=== PATIENT | male | born 1960 | race African-American/Black ===

== ENCOUNTER 2017-11-16 15:59 | Observation (INO) | payer OTHER ==
[2017-11-16] MEDS: HYDROcodone/APAP 10/325 1 TAB TABLET PO ×2 (17:54→23:53)
[2017-11-16] MEDS: cefTRIAXone IV Push 1 GM VIAL. IVP (18:21)
[2017-11-16] MEDS: IV DEXTROSE 5 %-0.45 % NACL 1,000 ML IV (18:25)
[2017-11-16 18:52] LABS: BASO % 1 % (0-3); EOS # 0.2 x10^3/uL (0.0-0.7); EOS % 2 % (0-3); HEMATOCRIT 46.4 % (39.0-53.0); HEMOGLOBIN 15.9 g/dL (13.0-17.5); LYMPH # 1.6 x10^3/uL (1.0-4.8); LYMPH % 21 % (24-48); MEAN CORPUSCULAR HEMOGLOBIN 29 pg (25-35); MEAN CORPUSCULAR HGB CONC 34 g/dL (31-37); MEAN CORPUSCULAR VOLUME 84 fL (79-100); MONO # 1.4 x10^3/uL (0.0-1.1); MONO % 20 % (0-9); NEUT # 4.2 x10^3uL (1.8-7.7); NEUT % 57 % (31-73); PLATELET COUNT 194 x10^3/uL (140-400); RED BLOOD COUNT 5.55 x10^6/uL (4.30-5.70); RED CELL DISTRIBUTION WIDTH 13.1 % (11.5-14.5); WHITE BLOOD COUNT 7.4 x10^3/uL (4.0-11.0)
[2017-11-16 18:54] LABS: ADD MAN DIFF? YES
[2017-11-16 19:11] LABS: ANION GAP 5 (6-14); BLOOD UREA NITROGEN 32 mg/dL (8-26); CALCIUM 9.2 mg/dL (8.5-10.1); CARBON DIOXIDE 31 mmol/L (21-32); CHLORIDE 102 mmol/L (98-107); CREATININE 1.8 mg/dL (0.7-1.3); GFR 47.6; GLUCOSE 128 mg/dL (70-99); POTASSIUM 3.4 mmol/L (3.5-5.1); SODIUM 138 mmol/L (136-145)
[2017-11-16 19:43] LABS: % ATYL 1 % (0-0); % BASOS 1 % (0-3); % EOS 1 % (0-5); % LYMPHS 27 % (24-48); % MONOS 15 % (0-10); % SEGS 55 % (35-66); PLT ESTIMATE ADEQUATE (ADEQUATE)
[2017-11-16] MEDS: MORPHINE SULFATE 4 MG/ML DISP.SYRIN. IV ×2 (19:59→22:05)
[2017-11-16] MEDS: TAMSULOSIN 0.4 MG CAP.ER.24H. PO (21:29)
[2017-11-17] MEDS: IV DEXTROSE 5 %-0.45 % NACL 1,000 ML IV (04:30)
[2017-11-17] MEDS ORDERED: PROCHLORPERAZINE 10 MG/2 ML VIAL. IV (07:00)
[2017-11-17] MEDS ORDERED: ONDANSETRON PF 4 MG/2 ML VIAL. IV (07:00)
[2017-11-17] MEDS ORDERED: LIDOCAINE 1% PF 2 ML VIAL. ID (07:00)
[2017-11-17] MEDS ORDERED: MORPHINE SULFATE 2 MG/ML DISP.SYRIN. IV (07:00)
[2017-11-17] MEDS ORDERED: fentaNYL PF VIAL 100 MCG/2 ML VIAL IV ×2 (07:00)
[2017-11-17] MEDS: IV RINGERS,LACTATED 1000ML 1,000 ML IV (07:21)
[2017-11-17] MEDS ORDERED: LIDOCAINE 2% PF Vial for OR 5 ML VIAL. (07:22)
[2017-11-17] MEDS ORDERED: fentaNYL PF VIAL 100 MCG/2 ML VIAL (07:22)
[2017-11-17] MEDS ORDERED: DEXAMETHASONE SOD PHOS 20 MG/5 ML VIAL. (07:22)
[2017-11-17] MEDS ORDERED: PROPOFOL 20 ML IV (07:22)
[2017-11-17] MEDS ORDERED: ONDANSETRON PF 4 MG/2 ML VIAL. (07:22)
[2017-11-17] MEDS ORDERED: LIDOCAINE 2% JELLY 6ML IN APPLICATOR. (07:22)
[2017-11-17] MEDS ORDERED: METOPROLOL TARTRATE 5 MG/5 ML VIAL. (07:38)
[2017-11-17] MEDS ORDERED: ePHEDrine PF IN SALINE 50 MG/5 ML DISP.SYRIN IV (07:46)
[2017-11-17] MEDS ORDERED: VASOPRESSIN 20 UNIT/ML VIAL. (07:57)
[2017-11-17] MEDS ORDERED: IPRATRPIUM/ALBUTEROL 0.5/2.5MG 3 ML NEBU. (08:40)
[2017-11-17] MEDS: IPRATRPIUM/ALBUTEROL 0.5/2.5MG 3 ML NEBU. NEB ×2 (08:43→15:09)
[2017-11-17] MEDS ORDERED: OXYBUTYNIN CHLORIDE 5 MG TABLET PO (08:45)
[2017-11-17] MEDS: IOHEXOL 300 MG/ML 100ML VIAL. (08:49)
[2017-11-17] MEDS: METOPROLOL SUCC 24HR ER 25 MG TAB.ER.24H. PO (10:53)
[2017-11-17] MEDS: LOSARTAN POTASSIUM 50 MG TABLET. PO (10:53)
[2017-11-17] MEDS: amLODIPine BESYLATE 10 MG TABLET PO (10:54)
[2017-11-17] MEDS: cefTRIAXone IV Push 1 GM VIAL. IVP (17:53)
[2017-11-17] MEDS ORDERED: LACTOBACILLUS RHAMNOSUS GG 1 CAPSULE. PO (21:00)
== END 2017-11-17 18:38 | disposition home or self-care (01) ==
LOC: 4 NORTH 15:59
DX: N20.1 Calculus of ureter (principal); N13.2 Hydronephrosis with renal and ureteral calculous obstruction; I10 Essential (primary) hypertension; E78.5 Hyperlipidemia, unspecified
CPT/HCPCS: 36415; 71046; 74420; 80048; 85007; 85025; 94640; 96374; 96375; 96376; C1769; C2617; G0378; G0379; J0696; J1100; J2270; J2405; J2704; J3010; J3490; J7120; J7620; Q9967